=== PATIENT | female | born 1945 | race Caucasian/White ===

== ENCOUNTER 2020-10-15 08:05 | Day surgery (SDC) | payer MEDICARE ==
[~2020-10-15] VITALS: Ht 165.1 cm; Wt 73.7 kg
[~2020-10-15 08:05] MED LIST: AMLO5 PO; HYDACE5 PO; LEVSOD25 PO; LORAZEPAM; ONDA4 PO; OXYACE5T PO; RIFA300 PO; ROCEPHIN IV; TRAZ100 PO; VITAMIN B-COMPLEX PO; [UNRECOGNIZED DRUG - OTHER] PO
--- NOTE | 2020-10-15 09:02 | NUR ---
Ambulatory in Day SurgeryPatient states colon prep results clear. History, Chart, Medications and Allergies reviewed before start of procedure.Lungs clear T/O to Auscultation. Patient confirms NPO status and agrees with scheduled surgery. Pre-Op teaching done. Pt verbalizes understanding. Patient States Post-Procedure ride home has been arranged.
--- NOTE | 2020-10-15 09:53 | NUR ---
10/15/20 0953 Ramiro Snyder History, Chart, Medications and Allergies reviewed before start of procedure. MONITOR INTACT WITH CONTINUOUS PULSE OXIMETRY AND INTERMITTENT BP. 3-LEAD EKG REVIEWED WITH PHYSICIAN PRIOR TO START OF PROCEDURE. O2 VIA N/C INTACT THROUGHOUT SEDATION/PROCEDURE. PATIENT DETERMINED TO BE ASA APPROPRIATE FOR PROPOFOL SEDATION PRIOR TO START OF PROCEDURE BY DR. PERERA.
--- NOTE | 2020-10-15 10:29 | NUR ---
Patient up to Ambulate independently. Gait steady. Discharge instructions reviewed with patient. Patient verbalizes understanding. Copy given to patient to take home. Discharged via wheelchair to private car for ride home.
== END 2020-10-15 10:28 | disposition home or self-care (01) ==
LOC: ORSCMMR 08:05 → ORD 10-17 09:30 → ORSCMMR 10-17 09:30
PROVIDERS: Internal Medicine Gastroenterology
PROC: 0DJD8ZZ Inspection of Lower Intestinal Tract, Via Natural or Artificial Opening Endoscopic (ICD-10-PCS; principal; 2020-10-15 09:00)
DX: R19.5 Other fecal abnormalities (principal); K57.30 Diverticulosis of large intestine without perforation or abscess without bleeding; I10 Essential (primary) hypertension
CPT/HCPCS: J2704; J7120

== ENCOUNTER 2022-02-18 08:59 | Day surgery (SDC) | payer MEDICARE ==
[~2022-02-18] VITALS: Ht 165.1 cm; Wt 70.1 kg
[~2022-02-18 08:59] MED LIST changes: +Norco 5-325 Ta1 EACH PO
[2022-02-18] MEDS ORDERED: OMEP20ER PO (09:45)
[2022-02-18] MEDS ORDERED: MUPIROCIN15 GM (09:46)
[2022-02-18] MEDS ORDERED: FLUTICASONE PRO16 GM (09:47)
[2022-02-18] MEDS ORDERED: 1/2 NS 250ml250 ML (09:48)
[2022-02-18] MEDS ORDERED: ZYRTEC10 M2 PO (09:48)
[2022-02-18] MEDS ORDERED: MERIBIN5 MG PO (09:49)
[2022-02-18] MEDS ORDERED: BANOPHEN25 MG PO (09:49)
[2022-02-18] MEDS ORDERED: B COMPLEX FORM0.4 MG PO (09:50)
--- NOTE | 2022-02-18 10:24 | NUR ---
Ambulatory in Day Surgery. Patient confirms NPO status and agrees with scheduled surgery. Lungs clear T/O to Auscultation. Pre-Op teaching done. Pt verbalizes understanding. Patient reports completing Chlorhexadine shower X2 prior to admission to hospital.
--- NOTE | 2022-02-18 11:41 | NUR ---
02/18/22 Spencer1 Fide Duarte PATIENT RECEIVED VANCO 1GM IN THE PREOP SETTING PRIOR TO ARRIVING IN THE OR.
--- NOTE | 2022-02-18 16:23 | NUR ---
POST OP: REPORT RECEIVED FROM DELANEY VALDEZ. PT TO UNIT AT ABOUT 1510. PT IS A/O, VSS. SURGICAL SITE WNL, HAS FULL SENSATION. PT TOLERATED PO INTAKE. REPORTS PAIN 4/10, MEDICATED PER EMAR. FAMILY AT BEDSIDE.
--- NOTE | 2022-02-18 19:03 | NUR ---
SUMMARY: DOING WELL POST OP. VSS, A/O. VOIDING AND ABLE TO WORK WITH THERAPY, WALKED IN HALLS. SURGICAL SITE WNL. PAIN SEEMS WELL MANAGED WITH 1 OXY. PT EATING AND DRINKING. NO SAFETY CONCERNS, REPORT PASSED TO JUSTIN FRITZ.
--- NOTE | 2022-02-19 04:08 | NUR ---
POD1 FOR A RIGHT TKA. GAUZE AND LAYTON WRAP REMAIN C/D/I. VSS. THE PATIENT AMBULATED TO THE BATHROOM MULTIPLE TIMES T/O THE NIGHT, VOIDING W/O DIFFICULTY. DENIES PASSING FLATTUS. TOLLERATING PO INTAKE, MEDICATED ONCE FOR NAUSEA AFTER PAIN MED ADMINISTRATION. PAIN HAS BEEN MANAGED WITH CRYO MACHINE, ELEVATION, OXY, AND SCHEDULED MEDICATION. THE PATIENT HAS SLEPT ON AND OFF T/O THE NIGHT, NO ACUTE EVENTS NOTED. AWAITING PT EVALUATION THIS AM AND DISCHARGE ORDERS. THE PATIENT IS CURRENTLY RESTING, IN NO DISTRESS. CALL LIGHT IN REACH.
[2022-02-19 04:43] LABS: BASOPHILS ABSOLUTE AUTO 0.02 K/mm3 (0.00-0.23); BASOPHILS PERCENT AUTO 0 % (0-2); EOSINOPHILS ABSOLUTE AUTO 0.09 K/mm3 (0.00-0.68); EOSINOPHILS PERCENT AUTO 1 % (0-6); Hematocrit 38.1 % (33.0-51.0); Hemoglobin 12.2 g/dL (11.5-16.0); IMMATURE GRAN ABSOLUTE AUTO 0.02 K/mm3 (0.00-0.10); IMMATURE GRAN PERCENT AUTO 0 % (0-1); LYMPHOCYTES ABSOLUTE AUTO 2.01 K/mm3 (0.84-5.20); LYMPHOCYTES PERCENT AUTO 23 % (21-46); MONOCYTES ABSOLUTE AUTO 1.18 K/mm3 (0.16-1.47); MONOCYTES PERCENT AUTO 14 % (4-13); Mean Corpuscular HGB 31.3 pg (26.0-34.0); Mean Corpuscular Volume 98 fL (80-100); Mean Platelet Volume 10.2 fL (9.1-12.4); NEUTROPHILS ABSOLUTE AUTO 5.31 K/mm3 (1.96-9.15); NEUTROPHILS PERCENT AUTO 62 % (41-73); Platelet Count 192 K/mm3 (150-400); RDW Coefficient Variation 12.1 % (11.7-14.2); White Blood Cell Count 8.63 K/mm3 (4.00-11.30)
[2022-02-19 05:06] LABS: Bun/Creatinine Ratio 19.2 (12.0-20.0); Calcium, Blood 8.1 mg/dL (8.5-10.1); Creatinine, Blood 0.52 mg/dL (0.40-1.00); Magnesium, Blood 1.7 mg/dL (1.6-2.4); Potassium, Blood 3.5 mmol/L (3.5-5.5)
[2022-02-19] MEDS ORDERED: ASPI81CH PO (09:53)
[2022-02-19] MEDS ORDERED: SULTRIDS PO (09:54)
[2022-02-19] MEDS ORDERED: ROXICODONE5 MG PO (09:54)
--- NOTE | 2022-02-19 11:26 | NUR ---
1120 DISCHARGED HOME WITH FAMILY. PT AMBULATING WITH WALKER, ZIYAD PO FOOD AND FLUIDS-REPORTS SLIGHT NUSEA BUT DECLINES NEED FOR MEDICATIONS. DRESSING TO RIGHT KNEE DRY AND INTACT, PT PROVIDED WITH DRESSINGS TO TAKE HOME. PT IS IN [place] WITH DISCHARGE PLAN
== END 2022-02-19 11:28 | disposition home or self-care (01) ==
LOC: ORSCMMR 08:59 → ORD 10:45 → SURS 14:52 → ORSCMMR 02-19 11:28
PROVIDERS: Orthopaedic Surgery
PROC: 0SRC0J9 Replacement of Right Knee Joint with Synthetic Substitute, Cemented, Open Approach (ICD-10-PCS; principal; 2022-02-18 10:45)
DX: M17.11 Unilateral primary osteoarthritis, right knee (principal); M79.7 Fibromyalgia; Z79.899 Other long term (current) drug therapy
CPT/HCPCS: 36415; 73560-RT; 80048; 83735; 85025; 97110; 97116; 97162; A9270; C1713; C1776; J0171; J0690; J0735; J1885; J2370; J2405; J2704; J2765; J2795; J3010; J3370; J7050; J7120